=== PATIENT | female | born 1985 | race Caucasian/White ===

== ENCOUNTER 2017-03-11 17:54 | Observation (INO) | payer OTHER ==
--- NOTE | ~2017-03-11 | BMI ---
[facility] Nutrition Therapy DATE: 03/12/17 Patient: CELESTE ARIAS Physician: NATHAN Address: [address] [facility] [address] Room/Bed: [address] [place] [address], Zip: [place] [address] Admit Date: 03/12/17 Date of : [birth year] Height: 5 4 Weight: 235 107 HIGH BMI NOTE: DX: 32 Y.O. FEMALE ADMITTED FOR INTRACTABLE N/V ANTHROPOMETRICS: 5'4", WT: 235# (107 KG), BMI: 40.3 DIET: NPO INTERVENTION: 1. NPO RECOMMENDATIONS: 1. ONCE MEDICALLY FEASIBLE, ADVANCE DIET INDICATED TO CC+HH TO PROMOTE GRADUAL WEIGHT LOSS TOWARDS HEALTHY BMI (19.0-25.0) OR +/-10%IBW RD WILL F/U PER PROTOCOL Respectfully, DARIEL SULLIVAN MS, RD, LD Food and Nutritional Services [facility] cc: client file
--- NOTE | ~2017-03-11 | DS ---
Unit #: [id number] #: [id number] Patient: CELESTE ARIAS [id number] [address] [address] [id number] I MR#: [id number] NAME: CELESTE ARIAS ROOM: 230 Age: 32 Sex: F Admission Date: 03/12/2017 : 1985 Discharge Date: 03/13/2017 Attending Physician: Ruth Hillman M.D. DISCHARGE SUMMARY ADDENDUM PROCEDURES EGD which was normal with the exception of some mild gastritis. HOSPITAL COURSE The patient remained overnight due to some miscommunication regarding discharge. She still had an episode of emesis this morning. I am going to write her some Zofran but allow her to be discharged home and she will follow up with Dr. Arredondo per his instructions. Dictated by... Ruth Hillman M.D. ALYSE/stephy TD: 03/15/2017 06:49 JOB #: [id number] DISCHARGE SUMMARY Page 1 of 1 X Ruth Hillman MD DISCHARGE SUMMARY
--- NOTE | ~2017-03-11 | OR ---
Unit #: [id number] #: [id number] Patient: CELESTE ARIAS [id number] [address] [address] [id number] I MR#: [id number] NAME: CELESTE ARIAS ROOM: 230 Date of Procedure: 03/12/2017 Admission Date: 03/12/2017 Surgeon: Carlos Arredondo M.D. : 1985 Attending Physician: Ruth Hillman M.D. OPERATIVE REPORT PROCEDURE PERFORMED Esophagogastroduodenoscopy with biopsy. INDICATIONS FOR PROCEDURE A 32-year-old with persistent nausea and vomiting going on for several weeks Workup so far has been negative. MEDICATIONS Monitored anesthesia. POSTOPERATIVE FINDINGS 1. Normal esophagus. 2. Mild antral gastritis, biopsies taken. 3. Normal duodenum and distal duodenum. PLAN The patient's findings are not strong enough to explain the symptoms she has been having. Continue symptomatic treatment. Advised on abstinence completely . DESCRIPTION OF PROCEDURE The patient was explained of the procedure, risks, and benefits along with the risks and benefits of anesthesia. She was brought to the endoscopy room. Propofol anesthesia was given. Bite block was placed. The scope was passed down the mouth into the esophagus, stomach, duodenum, and distal duodenum. Findings as described. Biopsies taken. Gently, I pulled it out of the patient's mouth. She tolerated it well. Dictated by... Nirmala Monsalve/barbara TD: 03/12/2017 23:16 JOB #: [id number] Unit #: [id number] #: [id number] Patient: CELESTE ARIAS OPERATIVE REPORT Page 1 of 1 X Carlos Arredondo MD X PROCEDURE OPERATIVE NOTE
--- NOTE | ~2017-03-11 | HP ---
Unit #: [id number] #: [id number] Patient: CELESTE ARIAS [id number] [address] [address] [id number] I MR#: [id number] NAME: CELESTE ARIAS ROOM: 230 Age: 32 Sex: F Admission Date: 03/12/2017 : 1985 Attending Physician: Dena Guy M.D. HISTORY AND PHYSICAL REVISED REPORT CHIEF COMPLAINT Intractable nausea and vomiting. HISTORY This 32-year-old female with Stopover's disease, bipolar disorder, hypothyroidism, and gastritis, is admitted for intractable nausea and vomiting. The patient states that she was well until about a month and a half ago when she began to experience intermittent diarrhea. Two weeks ago she then experienced nonbloody nausea, vomiting, diarrhea. Went to emergency department, received IV fluids, IV steroids and Zofran with initial improvement. Began again experiencing nausea and vomiting nine days ago which has persisted despite two other ER visits. CT done as an outpatient only reveals a 2 cm fibroid in the uterus. The patient denies urinary symptoms except for decreased urinary output. Is experiencing epigastric pains. At one point, did have a little bit of blood in the emesis after vomiting vigorously. She was referred to Dr. Arredondo who saw her yesterday, and plans were from an EGD early next week. However, the patient became lightheaded with decreased energy at home. He, therefore, came to this emergency department last evening. Vital signs are stable. She was bolused with a liter of saline, given Zofran and Pepcid. Her urinalysis may be abnormal and, therefore, she was given 1 g of Rocephin. I have asked that Solu-Cortef also be given. The patient denies ill contacts recently, or eating anything out of the ordinary. She does smoke THC but states that her symptoms are not associated with this substance. PAST MEDICAL HISTORY 1. Viktor's disease diagnosed in 2001. 2. Bipolar disorder. 3. Hypothyroidism. 4. Gastritis. 5. . ALLERGIES None. HOME MEDICATIONS 1. Hydrocortisone, 20 mg in the morning, 10 mg in the evening. 2. Florinef 0.1 mg daily. 3. Synthroid 0.15 mg daily. 4. Lamictal 200 mg daily. Unit #: [id number] #: [id number] Patient: CELESTE ARIAS 5. Protonix 40 mg daily. 6. Celexa 40 mg daily. 7. BuSpar 40 mg q. h.s. 8. Zofran p.r.n. FAMILY HISTORY Father developed colon cancer at age 65. SOCIAL HISTORY The patient lives with her 9-year-old son. She is a lifelong nonsmoker, does not drink alcohol. Does use THC. REVIEW OF SYSTEMS Notable for nausea, vomiting, initial diarrhea which has improved somewhat, Viktor's disease, bipolar disorder, hypothyroidism, gastritis, . All other systems were reviewed and otherwise negative except for some epigastric discomfort. PHYSICAL EXAMINATION GENERAL APPEARANCE: Pleasant, obese, 32-year-old female, currently in no acute distress. VITAL SIGNS: Temperature 98.3, pulse 96, respirations 16, blood pressure 105/71, O2 saturation 100% on room air. HEENT: Eyes PERRLA. Extraocular muscles are intact. Pharynx is benign. NECK: Supple without adenopathy or thyromegaly. CHEST: Clear. CARDIAC: Normal S1 and S2 without S3, S4 or murmur. ABDOMEN: Bowel sounds are present. The patient is mildly tender in the epigastric region without rebound or guarding. No hepatosplenomegaly or masses. EXTREMITIES: Without clubbing, cyanosis or edema. Pedal pulses are present. NEUROLOGIC EXAM: The patient is awake, alert, oriented. Cranial nerves are intact. Equal strength throughout. DIAGNOSTIC STUDIES LABORATORY: Hematocrit 40.6. Normal white count and platelet count. SMA-12 - normal as is lipase. Urinalysis - trace protein, 1+ leukocyte esterase. Specific gravity 1.035 with 10-25 white cells, 3+ bacteria but moderate squamous epithelial cells making this a poor specimen. ASSESSMENT 1. Intractable nausea and vomiting for the past two weeks, occurring after eating. This may be related to Cannabis hyperemesis syndrome although the symptoms are not classic of such. Plans are for an EGD in the morning. 2. Viktor's disease. 3. History of gastritis, currently on a proton pump inhibitor. 4. Hypothyroidism. 5. Bipolar disorder. PLANS 1. IV fluids, antiemetics, stress dose steroids until able to take down p.o. hydrocortisone. 2. The patient does have pyuria although I believe this is related to Unit #: [id number] #: [id number] Patient: ARIAS,CELESTE contamination as opposed to a true UTI. She did receive one dose of antibiotics in the ER. Cultures are pending. 3. GI plans to see in the morning for endoscopy. Dictated by Nirmala Black/stephy TD: 03/12/2017 05:07 JOB #: [id number] CC: Bradly Santos M.D. HISTORY AND PHYSICAL Page 1 of 1 X Dena Guy MD HISTORY AND PHYSICAL
--- NOTE | ~2017-03-11 | DS ---
Unit #: [id number] #: [id number] Patient: CELESTE MAST [id number] [address] [address] [id number] I MR#: [id number] NAME: CELESTE MAST ROOM: 230 Age: 32 Sex: F Admission Date: 03/12/2017 : 1985 Discharge Date: 03/13/2017 Attending Physician: Ruth Hillman M.D. DISCHARGE SUMMARY PRIMARY CARE PHYSICIAN Dr. Bradly Santos. CHIEF COMPLAINT 1. Postprandial nausea, vomiting pending EGD. 2. Nonanion gap metabolic acidosis. 3. Navasota disease. 4. History of gastritis. 5. Bipolar disorder primarily with depression. 6. Hypothyroidism. 7. Probable irritable bowel syndrome. 8. Morbid obesity. 9. Marijuana use. [employer] Dr. Arredondo, Gastroenterology. PROCEDURE EGD, results of which are currently pending. CLINICAL HISTORY AND HOSPITAL COURSE Ms. Mast is a 32-year-old female with repeated nausea, vomiting over the past several weeks who is put in the hospital for further evaluation. The patient was being seen by Dr. Arredondo as an outpatient but, unfortunately, had recurrent nausea, vomiting and thus presented to the emergency department. She was subsequently placed in observation for evaluation. The plan is for patient to undergo an EGD later today per Dr. Arredondo. Assuming no significant and/or life-threatening findings, I anticipate she will be discharged home today. Lab work has been completely normal and she is nontender on exam. Urinalysis revealed a questionable UTI upon presentation but is a dirty sample and urine culture is negative. No plans for further antibiotics. I anticipate the patient will be discharged home later today. DISCHARGE CONDITION Stable. DISCHARGE STATUS Discharge to home. DISCHARGE MEDICATIONS Unit #: [id number] #: [id number] Patient: CELESTE MAST 1. Florinef 0.1 mg p.o. daily. 2. Hydrocortisone 20 mg in the morning and 10 mg at bedtime. 3. Lamictal 200 mg daily. 4. Celexa 40 mg daily. 5. Zofran 4 mg p.o. q.6 hours p.r.n. for nausea, vomiting. 6. BuSpar 40m g p.o. daily. 7. Levothyroxine 150 mcg p.o. daily. 8. Protonix 40 mg daily. DISCHARGE INSTRUCTIONS 1. The patient was instructed to follow a Heart Healthy, low calorie diet. 2. She can increase her activity as tolerated. 3. To avoid any NSAID use in the future. FOLLOWUP The patient will follow up per Dr. Arredondo per his instructions. EGD will be dictated as an addendum with any medication adjustments as necessary. Dictated by... Ruth Hillman M.D. ALYSE/carlita TD: 03/14/2017 13:40 JOB #: [id number] DISCHARGE SUMMARY Page 1 of 1 X Ruth Hillman MD X DISCHARGE SUMMARY
--- NOTE | ~2017-03-11 | CO ---
Unit #: [id number] #: [id number] Patient: CELESTE ARIAS [id number] [address] [address] [id number] I MR#: [id number] NAME: CELESTE ARIAS ROOM: 230 Age: 32 Sex: F Admission Date: 03/12/2017 : 1985 Attending Physician: Rtuh Hillman M.D. CONSULTATION REPORT REASON FOR CONSULTATION Persistent nausea and vomiting. HISTORY OF PRESENTING ILLNESS The patient states she was in her usual state of health until about 02/26/2017, where she began to have persistent nausea and vomiting. At that day, she did have one large bowel movement, which was diarrhea. Diarrhea has since resolved. In fact, she states she has not had a bowel movement for about a week. The patient has been to [facility] times for evaluation. Workup there each time was negative including CT abdomen and pelvis and lab work. We saw her as an outpatient in our clinic and was actually scheduled for an EGD on Wednesday. The patient then began to feel lightheaded and dizzy yesterday and subsequently came to the ER and was admitted for further evaluation and workup. PAST MEDICAL HISTORY Obion's; bipolar; hypothyroidism; gastritis; ; previous EGD was done in 2011, no records available on that. ALLERGIES None known. HOME MEDICATIONS Hydrocortisone, Florinef, Synthroid, Lamictal, Protonix, Celexa, BuSpar, Zofran. FAMILY HISTORY Notable for colon cancer, father at age 65. SOCIAL HISTORY The patient lives at home with her son. Does not smoke or drink alcohol, however, she does use marijuana daily. REVIEW OF SYSTEMS A complete 10-point review of systems is completed and negative except as mentioned in the HPI. PHYSICAL EXAMINATION GENERAL: The patient is a pleasant 32-year-old female, currently in no acute distress. VITAL SIGNS: Temperature 97.5, pulse is 69, respirations 16, blood pressure is 115/68. HEENT: PERRLA. NECK: Supple. Unit #: [id number] #: [id number] Patient: CELESTE ARIAS CARDIAC: S1 and S2. LUNGS: Clear to auscultation. ABDOMEN: Soft, rounded, nontender, nondistended. Positive bowel sounds. NEUROLOGIC: The patient is alert, awake, and oriented x3. DIAGNOSTIC STUDIES LABORATORY RESULTS: BUN and creatinine are normal and 1.0 respectively. Otherwise, chemistry is completely normal. White count 6.8, hemoglobin is 12.9, hematocrit is 39.2, and platelets are 276. ASSESSMENT AND PLAN 1. Persistent nausea and vomiting, perhaps related to cannabis hyperemesis syndrome. We will check an EGD to rule out others. Continue PPI therapy. Supportive care for now. The patient is likely to go home after EGD today. 2. Obion's. 3. Bipolar. Thank you for this interesting consult. We will continue to follow along. Dictated by... Lary StarkeyPNachoRLexis for Carlos Arredondo M.D. RHYS/barbara TD: 03/13/2017 13:38 JOB #: [id number] CONSULTATION REPORT Page 1 of 1 X X CONSULTATION REPORT
[2017-03-11 19:10] LABS: URINE SOURCE CLEAN CATCH
[2017-03-11 19:13] LABS: URINE APPEARANCE CLOUDY; URINE BLOOD NEG (NEG); URINE COLOR DK YELLOW; URINE GLUCOSE NEG (NEG); URINE KETONE 1+ (NEG); URINE LEUKOCYTE ESTERASE 1+ (NEG); URINE NITRATE NEG (NEG); URINE PH 5.5 (5-8); URINE PROTEIN TRACE (NEG); URINE SPECIFIC GRAVITY 1.035 (1.003-1.035)
[2017-03-11 19:16] LABS: CULTURE INDICATED? YES; URINE BACTERIA AUWI 3+ (NEGATIVE); URINE SQUAMOUS EPITHELIAL CELL MOD /[HPF]
[2017-03-11 19:24] LABS: U HYALINE CASTS AUWI 0-2 /[LPF]; URINE YEAST PRESENT
[2017-03-11 19:25] LABS: URINE CRYSTALS CALCIUM OXALATE /[HPF]
[2017-03-11 21:59] LABS: BASOPHIL% 0.6 % (0-2.5); EOSINOPHIL# 0.1 X10e3 (0-0.7); EOSINOPHIL% 1.5 % (0.0-7.0); HEMATOCRIT 40.6 % (35.0-45.0); HEMOGLOBIN 13.4 gm/dL (12.0-16.0); LYMPHOCYTE# 2.2 X10e3 (1.0-3.5); LYMPHOCYTE% 27.7 % (17.0-45.0); MEAN CELL VOLUME 81.3 FL (83-96); MEAN CORPUSCULAR HEMOGLOBIN 26.8 PG (28-34); MEAN PLATELET VOLUME 8.8 FL (6.5-11.5); MONOCYTE# 0.6 X10e3 (0-1.0); MONOCYTE% 7.6 % (3.0-12.0); NEUTROPHIL% 62.6 % (40-75); PLATELET COUNT 296 X10e3 (140-420); RED CELL DISTRIBUTION WIDTH 13.8 % (11.0-15.5)
[2017-03-11 22:00] LABS: DIFF IND NO
[2017-03-11 22:14] LABS: ALBUMIN SERUM 4.2 g/dL (3.5-5.0); BILIRUBIN, DIRECT 0.1 mg/dL (0.0-0.2); BILIRUBIN,INDIRECT 0.6 mg/dL (0.0-0.9); BILIRUBIN,TOTAL 0.7 mg/dL (0.2-2.0); CALCIUM SERUM 9.2 mg/dL (8.4-10.2); GLOM FILT RATE Estimated 73.5 mL/min (>60); POTASSIUM 4.1 mmol/L (3.5-5.1); PROTEIN TOTAL SERUM 6.9 g/dL (6.0-8.3)
[2017-03-11] MEDS ORDERED: HYDROCORTISONE10 MG PO (23:15)
[2017-03-11] MEDS ORDERED: CORTEF20 MG PO (23:16)
[2017-03-11] MEDS ORDERED: FLORINEF0.1 MG PO (23:17)
[2017-03-11] MEDS ORDERED: LEVOXYL150 MC1 PO (23:17)
[2017-03-11] MEDS ORDERED: LAMICTAL ODT200 MG PO (23:17)
[2017-03-11] MEDS ORDERED: CITALOPRAM HBR40 MG PO (23:18)
[2017-03-11] MEDS ORDERED: PROTONIX PO (23:18)
[2017-03-11] MEDS ORDERED: BUSPAR PO (23:18)
[2017-03-11] MEDS ORDERED: ZOFRAN ODT4 MG PO (23:19)
[2017-03-12 10:36] LABS: BASOPHIL% 0.5 % (0-2.5); EOSINOPHIL% 0.4 % (0.0-7.0); HEMATOCRIT 39.2 % (35.0-45.0); HEMOGLOBIN 12.9 gm/dL (12.0-16.0); LYMPHOCYTE# 1.3 X10e3 (1.0-3.5); LYMPHOCYTE% 19.6 % (17.0-45.0); MEAN CELL VOLUME 82.2 FL (83-96); MEAN CORPUSCULAR HEMOGLOBIN 27.1 PG (28-34); MEAN PLATELET VOLUME 9.4 FL (6.5-11.5); MONOCYTE# 0.4 X10e3 (0-1.0); MONOCYTE% 6.4 % (3.0-12.0); NEUTROPHIL% 73.1 % (40-75); PLATELET COUNT 276 X10e3 (140-420); RED BLOOD COUNT 4.76 X10e (3.90-5.30); RED CELL DISTRIBUTION WIDTH 13.8 % (11.0-15.5); WHITE BLOOD COUNT 6.8 X10e3 (4.0-10.5)
[2017-03-12 10:42] LABS: DIFF IND NO
[2017-03-12 10:46] LABS: CALCIUM SERUM 8.9 mg/dL (8.4-10.2); GLOM FILT RATE Estimated 73.5 mL/min (>60); POTASSIUM 4.3 mmol/L (3.5-5.1)
== END 2017-03-13 13:28 | disposition home or self-care (01) | DRG 392 ==
LOC: CED 17:54 → CEDOF 03-12 00:15 → C2A 03-12 00:15 → CEDOF 03-12 02:07 → C2A 03-12 02:07
PROVIDERS: Internal Medicine
DX: K29.60 Other gastritis without bleeding (principal); F31.9 Bipolar disorder, unspecified; E27.1 Primary adrenocortical insufficiency; E87.2 Acidosis; E03.9 Hypothyroidism, unspecified; E66.01 Morbid (severe) obesity due to excess calories; Z68.41 Body mass index [BMI] 40.0-44.9, adult; G47.30 Sleep apnea, unspecified; F12.10 Cannabis abuse, uncomplicated; M54.5 Low back pain; Z79.899 Other long term (current) drug therapy; Z80.0 Family history of malignant neoplasm of digestive organs
CPT/HCPCS: 36415; 80048; 80076; 81003; 83690; 84703; 85025; 87086; 88305; 88312; 96361; 96365; 96374; 96375; 96376; 99285; C9113; G0378; J0696; J1720; J2250; J2405